=== PATIENT | female | born 1965 | race African-American/Black ===

== ENCOUNTER 2020-04-07 20:21 | Emergency (ER) | payer BC, OTHER ==
[~2020-04-07] VITALS: Ht 162.6 cm; Wt 95.3 kg
--- NOTE | 2020-04-07 20:38 | NUR ---
MD FORTE in patient room to do MSE.
[2020-04-07] MEDS ORDERED: diphenhydrAMINE 50 MG/1 ML VIAL IM ONE (21:00)
[2020-04-07] MEDS ORDERED: KETOROLAC TROMETHAMINE 30 MG INJ IM ONE (21:00)
[2020-04-07] MEDS ORDERED: METOCLOPRAMIDE HCL 10 MG/2 ML VIAL IM ONE (21:00)
--- NOTE | 2020-04-07 21:10 | NUR ---
electronic test technician taking patient to CT
[2020-04-07] MEDS ORDERED: KETOROLAC TROMETHAMINE 30 MG INJ ONE (21:14)
[2020-04-07] MEDS ORDERED: diphenhydrAMINE 50 MG/1 ML VIAL ONE (21:14)
[2020-04-07] MEDS ORDERED: METOCLOPRAMIDE HCL 10 MG/2 ML VIAL ONE (21:14)
--- NOTE | 2020-04-07 21:20 | NUR ---
dyno technician in room to draw labs from patient.
--- NOTE | 2020-04-07 21:40 | NUR ---
Patient is resting in bed, watching TV. No acute distress is noted at this time.
[2020-04-07 21:49] LABS: BASOPHILS % (AUTO) 0.4 % (0.0-2.0); EOSINOPHILS # (AUTO) 0.1 K/uL (0.0-0.7); EOSINOPHILS % (AUTO) 1.7 % (0.0-7.0); HEMATOCRIT 36.3 % (31.2-41.9); HEMOGLOBIN 11.5 g/dL (10.9-14.3); LYMPHOCYTES # (AUTO) 1.9 K/uL (20.0-40.0); LYMPHOCYTES % (AUTO) 26.1 % (20.5-51.5); MEAN CORPUSCULAR HEMOGLOBIN 22.7 uug (24.7-32.8); MEAN CORPUSCULAR HGB CONC 32 g/dL (32.3-35.6); MEAN CORPUSCULAR VOLUME 71.4 fL (75.5-95.3); MONOCYTES # (AUTO) 0.5 K/uL (2.0-10.0); MONOCYTES % (AUTO) 6.7 % (0.0-11.0); NEUTROPHILS # (AUTO) 4.8 K/uL (1.8-8.9); NEUTROPHILS % (AUTO) 65.1 % (38.5-71.5); PLATELET COUNT (AUTO) 296 K/uL (179-408); RED BLOOD CELL COUNT(AUTO) 5.09 MIL/uL (3.63-4.92); WHITE BLOOD COUNT (AUTO) 7.4 K/uL (3.8-11.8)
[2020-04-07 21:55] LABS: CREATININE 1.1 mg/dL (0.6-1.3)
[2020-04-07 21:58] LABS: BILIRUBIN,DIRECT 0.1 mg/dL (0.0-0.2); BILIRUBIN,TOTAL 0.3 mg/dL (0.2-1.0); TOTAL PROTEIN, SERUM 7.4 g/dL (6.4-8.2)
--- NOTE | 2020-04-07 23:44 | NUR ---
Patient discharged to home in stable condition. Written and verbal after care instructions given. Patient verbalizes understanding of instructions. Stressed follow up or return to ER for worsening s/s. Patient ambulating with steady gait. NAD noted
[2020-04-07 23:46] VITALS: BP 118/72
== END 2020-04-07 23:44 | disposition home or self-care (01) ==
LOC: ER 20:21
DX: R51.9 Headache, unspecified (principal); R42 Dizziness and giddiness; Z86.69 Personal history of other diseases of the nervous system and sense organs; Z86.73 Personal history of transient ischemic attack (TIA), and cerebral infarction without residual deficits; G31.9 Degenerative disease of nervous system, unspecified; R03.0 Elevated blood-pressure reading, without diagnosis of hypertension
CPT/HCPCS: 36415; 70450; 80048; 80076; 84484; 85025; 85651; 93005; 96372 ×2; 99285; J1200; J1885; J2765; 70030-TC; A4663